=== PATIENT | male | born 2000 | race Two or more races ===

== ENCOUNTER 2023-03-15 16:13 | Outpatient (CLI) | payer SELFPAY | END 2023-03-15 16:14 | disposition home or self-care (01) | PROVIDERS: Visit Provider Family Medicine | DX: R06.09 Other forms of dyspnea (principal); R25.2 Cramp and spasm | CPT/HCPCS: A0425; A0427 ==

== ENCOUNTER 2023-03-15 16:26 | Emergency (ER) | payer SELFPAY ==
[2023-03-15 16:38] VITALS: BP 126/83; PULSE 91; RESP 20; TEMP 36.8; O2SAT 100; BMI 22.9
--- NOTE | 2023-03-15 17:21 | ED_ITS ---
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 He is accustomed to physical work in the heat but today he became weak and lightheaded. He had some cramping in his legs and arms. He felt like he might pass out. Paramedics were called and he is brought in. He is from [place] and is staying at a local motel while he is working here. He is able to communicate in [place] but his preferred language is a different [place] dialect. We were able to communicate adequately through our office helper clerical. He has had some nausea but no vomiting. He feels better already with the IV fluids given in route. He admits that he did not have much to drink today. He did eat lunch. Related Data Home Medications Medication Instructions Recorded Confirmed No Known Home Medications 03/15/23 03/15/23 Allergies Allergy/AdvReac Type Severity Reaction Status Date / Time No Known Drug Allergies Allergy Verified 03/15/23 16:36 Review of Systems Narrative: Review of systems is outlined above otherwise noted to be negative. PFSH PFS Social History Smoking Status: Never smoker How often do you have a drink containing alcohol: never AUDIT-C Alcohol total score: 0 Non-prescribed substance use: denies use Exam Narrative: Exam Narrative: Vitals noted. HEENT: Conjunctiva clear. Tympanic membranes are pearly white bilaterally. Posterior pharynx is clear without erythema or exudate. Neck is supple without adenopathy, thyromegaly, carotid bruit. Lungs: Clear to auscultation in all christensen. No wheezes, rales, rhonchi. Heart: Regular rate and rhythm without murmur. Abdomen: Soft and nontender. No guarding, rigidity, rebound. Bowel sounds are normal. No palpable masses. Extremities: No cyanosis or edema. Good distal pulses. Skin: No abnormalities noted of the exposed skin. Neurologic: Awake, alert, fully oriented. Neurologic exam is nonfocal. Const: Vital Signs, click to edit/add: Vital Signs - 24 hr 03/15/23 16:38 03/15/23 17:32 03/15/23 19:00 Temperature 98.3 F Pulse Rate [Right Pulse Oximeter] 91 89 95 Respiratory Rate 20 20 Blood Pressure [Le ft Upper Arm] 126/83 140/48 H Pulse Oximetry 100 98 98 Oxygen Delivery Me thod Room Air Room Air Room Air Course Course Hospital Course: Patient was seen and examined. He is given 2 L of normal saline and Toradol 15 mg IV. He feels much better. His cramping has resolved. There has been no nausea [place] vomiting[place] [address]. Hemoglobin is 15.2. MCV is 78. Basic metabolic panel is unremarkable. BUN is 18, creatinine is 1.1. Magnesium level is normal. Vital Signs Vital signs: Initial Vital Signs Temperature 98.3 F 03/15/23 16:38 Temperature Source Axillary 03/15/23 16:38 Pulse Rate 91 03/15/23 16:38 Respiratory Rate 20 03/15/23 16:38 Blood Pressure 126/83 03/15/23 16:38 Blood Pressure Mean 97 03/15/23 16:38 Blood Pressure Position Sitting 03/15/23 16:38 Pulse Oximetry 100 03/15/23 16:38 Oxygen Delivery Method Room Air 03/15/23 16:38 Vital Signs Temperature 98.3 F 03/15/23 16:38 Pulse Rate 91 03/15/23 16:38 Respiratory Rate 20 03/15/23 16:38 Blood Pressure 126/83 03/15/23 16:38 Pulse Oximetry 100 03/15/23 16:38 Oxygen Delivery Method Room Air 03/15/23 16:38 Temperature 98.3 F 03/15/23 16:38 Pulse Rate 95 03/15/23 19:00 Respiratory Rate 20 03/15/23 17:32 Blood Pressure 140/48 H 03/15/23 17:32 Pulse Oximetry 98 03/15/23 19:00 Oxygen Delivery Method Room Air 03/15/23 19:00 Medical Decision Making Lab Data Labs: Lab Results 03/15/23 Range/Units 17:30 WBC 14.67 H (4.50-11.00) K/uL RBC 5.75 (4.30-5.90) m/uL Hgb 15.2 (13.5-17.5) gm/dL Hct 45.1 (37.0-53.0) % MCV 78 L (80-100) fL MCH 26 (26-34) pg MCHC 34 (32-36) gm/dL RDW Coeff of Bella 12.1 (11.5-15.5) % Plt Count 406 (140-440) K/uL Neut % (Auto) 87.8 H (42.0-72.0) % Lymph % (Auto) 6.1 L (20-44) % [place] % (Auto) 5.4 (0.0-11.0) % Eos % (Auto) 0.0 (0.0-7.0) % Baso % (Auto) 0.2 (0.0-3.0) % Neut # (Auto) 12.90 H (1.7-7.0) K/uL Lymph # (Auto) 0.90 (0.90-2.90) K/uL [place] # (Auto) 0.80 (0.00-0.90) K/UL Eos # (Auto) 0.00 (0.00-0.50) K/uL Baso # (Auto) 0.00 (0.00-0.30) K/uL Abs Immat Gran (auto) 0.10 (0.00-0.30) K/uL Imm/Tot Granulo (auto) 0.5 % Sodium 141 (135-149) mmol/L Potassium 4.2 (3.6-5.1) mmol/L Chloride 103 (96-114) mmol/L Carbon Dioxide 21 (20-32) mmol/L Anion Gap 17 H (7-15) mEq/L BUN 18 (5-24) mg/dL Creatinine 1.1 (0.5-1.5) mg/dL Estimated Creat Clear 73.86 Estimated GFR 97 ml/min Glucose 106 (60-115) mg/dL Calcium 10.7 H (8.4-10.6) mg/dL Magnesium 1.6 (1.5-2.6) mg/dL Discharge Plan Discharge Clinical Impression: Heat exhaustion, Dehydration Patient Disposition: Home, Self-Care Condition: Improved Instructions: Heat Exhaustion (ED) Additional Instructions: Push fluids. Gatorade would be better than plain water. Tylenol or ibuprofen for headaches or body aches. It would be best to take tomorrow off from work and return on . It may take a day or two for your weakness to resolve. Follow-up if not significantly improved over the next 48 hours. Asegurase de zenia muchos liquidos. Lo que se llama Gatorade sera mejor que el agua simple. Acetaminofen o Ibuprofeno para los keisha de david y el cuerpo. No trabaje manana y puede regresar el jueves. Puede durar dennis o dos rondon para resolver el debilidad. Debe ser visto con un medico si eleazar sintomas no se mejore en 48 horsas. Prescriptions: No Action No Known Home Medications Stand Alone Forms: [facility] Info Instructions
[2023-03-15] MEDS: KETOROLAC 15 MG/ML inj IVP (17:30)
[2023-03-15] MEDS: 0.9 % SODIUM CHLORIDE 1000 ml 1,000 ML IV ×2 (17:30→18:30)
[2023-03-15 17:32] VITALS: BP 140/48; PULSE 89; RESP 20; O2SAT 98
[2023-03-15 17:38] LABS: Basophils Percent Auto 0.2 % (0.0-3.0); Hematocrit 45.1 % (37.0-53.0); Hemoglobin* 15.2 gm/dL (13.5-17.5); Immature Granulocytes Pct Auto 0.5 %; Lymphocytes Percent Auto 6.1 % (20-44); Mean Corpuscular HGB Conc 34 gm/dL (32-36); Mean Corpuscular Hemoglobin 26 pg (26-34); Mean Corpuscular Volume 78 fL (80-100); Monocytes Percent Auto 5.4 % (0.0-11.0); Neutrophils Percent Auto 87.8 % (42.0-72.0); Platelet Count* 406 K/uL (140-440); RDW Coefficient of Variation % 12.1 % (11.5-15.5); Red Blood Count 5.75 m/uL (4.30-5.90); White Blood Count* 14.67 K/uL (4.50-11.00)
[2023-03-15 17:42] LABS: Slide Review Reflex No
[2023-03-15 18:03] LABS: Chloride* 103 mmol/L (96-114); Potassium* 4.2 mmol/L (3.6-5.1); Sodium* 141 mmol/L (135-149)
[2023-03-15 18:06] LABS: Anion Gap 17 mEq/L (7-15); Blood Urea Nitrogen* 18 mg/dL (5-24); Carbon Dioxide* 21 mmol/L (20-32); Creatinine* 1.1 mg/dL (0.5-1.5); Est. Creatinine Clearance* 73.86; Estimated Glomerular Filt Rate 97 ml/min; Glucose* 106 mg/dL (60-115)
[2023-03-15 18:07] LABS: Calcium* 10.7 mg/dL (8.4-10.6); Magnesium* 1.6 mg/dL (1.5-2.6)
[2023-03-15 19:00] VITALS: PULSE 95; O2SAT 98
== END 2023-03-15 19:04 | disposition home or self-care (01) ==
LOC: ED 18:36
PROVIDERS: Emergency Provider Family Medicine
DX: T67.5XXA Heat exhaustion, unspecified, initial encounter (principal); E86.0 Dehydration
CPT/HCPCS: 36415; 80048; 83735; 85025; 96374; 99282; 99283; T1013; J1885; J7030